=== PATIENT | female | born 1980 | race Caucasian/White ===

== ENCOUNTER 2018-09-14 13:34 | Observation (INO) | payer MEDICAID ==
[~2018-09-14] VITALS: Ht 157.5 cm; Wt 77.1 kg
[2018-09-14] MEDS ORDERED: PREN-380 PO (13:54)
[2018-09-14 13:55] VITALS: BP 99/57
== END 2018-09-14 19:45 | disposition home or self-care (01) ==
LOC: MLD 13:34
PROVIDERS: ADMIT Obstetrics & Gynecology; ATTEND Obstetrics & Gynecology
DX: O62.9 Abnormality of forces of labor, unspecified (principal); Z3A.00 Weeks of gestation of pregnancy not specified
CPT/HCPCS: 59025; 76805; G0378; Q0092

== ENCOUNTER 2018-09-24 19:31 | Observation (INO) | payer MEDICAID ==
[~2018-09-24] VITALS: Ht 157.5 cm; Wt 77.1 kg
[~2018-09-24 19:31] MED LIST: PREN-380 PO
[2018-09-24 20:19] VITALS: BP 105/68
== END 2018-09-24 23:00 | disposition home or self-care (01) ==
LOC: MLD 19:31 → MFCC 20:11
PROVIDERS: ADMIT Obstetrics & Gynecology; ATTEND Obstetrics & Gynecology
DX: O26.893 Other specified pregnancy related conditions, third trimester (principal); R10.9 Unspecified abdominal pain; Z3A.39 39 weeks gestation of pregnancy
CPT/HCPCS: 76815; G0378; Q0092

== ENCOUNTER 2018-09-26 15:25 | Observation (INO) | payer MEDICAID ==
[~2018-09-26] VITALS: Ht 157.5 cm; Wt 77.1 kg
== END 2018-09-26 19:45 | disposition home or self-care (01) ==
LOC: MLD 15:25
PROVIDERS: ADMIT Obstetrics & Gynecology; ATTEND Obstetrics & Gynecology
DX: O26.893 Other specified pregnancy related conditions, third trimester (principal); R10.9 Unspecified abdominal pain; Z3A.38 38 weeks gestation of pregnancy
CPT/HCPCS: 76815; G0378; C1758; J7120

== ENCOUNTER 2018-09-28 18:47 | Inpatient (IN) | payer MEDICAID ==
[~2018-09-28] VITALS: Ht 157.5 cm; Wt 78.9 kg
[2018-09-28] MEDS ORDERED: OXYTOCIN 10 UNITS/ML VIAL IM SCH (19:10)
[2018-09-28] MEDS ORDERED: METHYLERGONOVINE 0.2 MG/ML AMP IM PRN (19:10)
[2018-09-28] MEDS ORDERED: PROMETHAZINE 25 MG/ML VIAL IVP PRN (19:10)
[2018-09-28] MEDS ORDERED: CARBOPROST 250 MCG/ML AMP IM PRN (19:10)
[2018-09-28] MEDS ORDERED: NALBUPHINE 10 MG/ML AMP IVP PRN (19:10)
[2018-09-28 19:42] LABS: BASOPHILS % (AUTO) 0.7 % (0.0-2.0); EOSINOPHILS # (AUTO) 0.2 K/uL (0-0.4); EOSINOPHILS % (AUTO) 2.9 % (0.0-4.0); HEMOGLOBIN 13.3 g/dL (12.0-16.0); LYMPHOCYTES # (AUTO) 1.5 K/uL (2.5-16.5); MEAN CORPUSCULAR HEMOGLOBIN 31 pg (27-31); MEAN CORPUSCULAR HGB CONC 33 g/dL (33-37); MEAN CORPUSCULAR VOLUME 92.1 fL (80-94); MONOCYTES # (AUTO) 0.4 K/uL (0.8-1.0); MONOCYTES % (AUTO) 5.9 % (1.7-9.3); NEUTROPHILS # (AUTO) 4.4 K/uL (1.8-7.7); NEUTROPHILS % (AUTO) 67.5 % (42.2-75.2); PLATELET COUNT (AUTO) 204 K/uL (140-450); RED BLOOD CELL COUNT(AUTO) 4.35 MIL/uL (4.20-5.40); RED CELL DISTRIBUTION WIDTH 14.6 % (11.6-13.7); WHITE BLOOD COUNT (AUTO) 6.5 K/uL (4.8-10.8)
[2018-09-28 19:42] LABS: APPEARANCE,URINE SL CLOUDY (CLEAR); BILIRUBIN,URINE NEGATIVE (NEGATIVE); BLOOD, URINE TRACE-I (NEGATIVE); COLOR,URINE YELLOW (YELLOW); LEUKOCYTE ESTERASE ,URINE 1+ (NEGATIVE); NITRITE, URINE NEGATIVE (NEGATIVE); UGLUCOSE NEGATIVE (NEGATIVE)
[2018-09-28 19:47] LABS: RBC,URINE 0-5 /HPF (0-5)
[2018-09-28] MEDS ORDERED: MISOPROSTOL 25 MCG TAB VG SCH (20:00)
[2018-09-28 20:05] VITALS: BP 105/84
[2018-09-29] MEDS ORDERED: OXYTOCIN 20 UNITS in LACTATED RINGERS 1,000 ML IV SCH ×2 (03:00→19:19)
[2018-09-29] MEDS ORDERED: OXYTOCIN 20 UNITS/LR PREMIX 1,000 ML IV ONE (03:13)
[2018-09-29] MEDS: LACTATED RINGERS 1,000 ML IV SCH ×3 (03:23→11:08)
[2018-09-29] MEDS ORDERED: BUPIVACAINE 0.125%/NS PREMIX 250 ML ONE (07:26)
[2018-09-29] MEDS ORDERED: OXYTOCIN 10 UNITS/ML VIAL ONE ×2 (10:01→17:50)
[2018-09-29] MEDS ORDERED: LIDOCAINE 1% 500 MG/50 ML VIAL ONE (10:01)
[2018-09-29] MEDS ORDERED: CARBOPROST 250 MCG/ML AMP IM ONE (18:04)
[2018-09-29] MEDS ORDERED: NALBUPHINE 10 MG/ML AMP IVP ONE (18:15)
[2018-09-29] MEDS ORDERED: NALBUPHINE 10 MG/ML AMP ONE (18:19)
[2018-09-29] MEDS ORDERED: BENZOCAINE/MENTHOL 20%-0.5% 60 GM CAN TP PRN (19:20)
[2018-09-29] MEDS ORDERED: MEASLES, MUMPS, AND RUBELLA 1 VIAL SQVAC PRN (19:20)
[2018-09-29] MEDS: IBUPROFEN 600 MG TAB PO PRN (22:15)
[2018-09-30] MEDS: ACETAMINOPHEN 325 MG TAB PO PRN ×2 (03:26→12:09)
--- NOTE | 2018-09-30 05:46 | NUR ---
PATIENT HAS BEEN SCREENED AND CATEGORIZED LOW NUTRITION RISK. PATIENT WILL BE SEEN WITHIN 7 DAYS OF ADMISSION. 10/05/17 CONCHIS AKHTAR MS, RDN
[2018-09-30] MEDS: DOCUSATE SODIUM 100 MG GELCAP PO PRN (07:44)
[2018-09-30] MEDS: IBUPROFEN 600 MG TAB PO PRN ×3 (07:44→20:04)
[2018-09-30 09:00] LABS: BASOPHILS % (AUTO) 0.3 % (0.0-2.0); EOSINOPHILS # (AUTO) 0.1 K/uL (0-0.4); EOSINOPHILS % (AUTO) 0.8 % (0.0-4.0); HEMATOCRIT 34.7 % (36-48); HEMOGLOBIN 11.6 g/dL (12.0-16.0); LYMPHOCYTES # (AUTO) 1.2 K/uL (2.5-16.5); LYMPHOCYTES % (AUTO) 10.3 % (20.5-51.1); MEAN CORPUSCULAR HEMOGLOBIN 31 pg (27-31); MEAN CORPUSCULAR HGB CONC 33 g/dL (33-37); MEAN CORPUSCULAR VOLUME 91.5 fL (80-94); MONOCYTES # (AUTO) 0.5 K/uL (0.8-1.0); MONOCYTES % (AUTO) 4.6 % (1.7-9.3); NEUTROPHILS # (AUTO) 9.8 K/uL (1.8-7.7); PLATELET COUNT (AUTO) 170 K/uL (140-450); RED CELL DISTRIBUTION WIDTH 14.7 % (11.6-13.7); WHITE BLOOD COUNT (AUTO) 11.7 K/uL (4.8-10.8)
[2018-10-01] MEDS: IBUPROFEN 600 MG TAB PO PRN ×3 (03:07→15:11)
[2018-10-01] MEDS: DOCUSATE SODIUM 100 MG GELCAP PO PRN (09:20)
[2018-10-01] MEDS ORDERED: FERR325E14 PO (13:30)
[2018-10-01] MEDS ORDERED: IBUP-1842 PO (14:18)
[2018-10-01] MEDS ORDERED: BISA5TAB79 PO (14:21)
== END 2018-10-01 17:22 | disposition home or self-care (01) | DRG 560 ==
LOC: MLD 18:47 → MFCC 09-30 00:39
PROVIDERS: ADMIT Obstetrics & Gynecology; ATTEND Obstetrics & Gynecology
PROC: 10D07Z6 Extraction of Products of Conception, Vacuum, Via Natural or Artificial Opening (ICD-10-PCS; principal; 2018-09-29)
PROC: 0KQM0ZZ Repair Perineum Muscle, Open Approach (ICD-10-PCS; 2018-09-29)
PROC: 3E033VJ Introduction of Other Hormone into Peripheral Vein, Percutaneous Approach (ICD-10-PCS; 2018-09-29)
PROC: 10907ZC Drainage of Amniotic Fluid, Therapeutic from Products of Conception, Via Natural or Artificial Opening (ICD-10-PCS; 2018-09-29)
PROC: 3E0R3BZ Introduction of Anesthetic Agent into Spinal Canal, Percutaneous Approach (ICD-10-PCS; 2018-09-29)
PROC: 00HU33Z Insertion of Infusion Device into Spinal Canal, Percutaneous Approach (ICD-10-PCS; 2018-09-29)
DX: O77.0 Labor and delivery complicated by meconium in amniotic fluid (principal); O36.63X0 Maternal care for excessive fetal growth, third trimester, not applicable or unspecified; O66.0 Obstructed labor due to shoulder dystocia; O70.1 Second degree perineal laceration during delivery; Z37.0 Single live birth; Z3A.40 40 weeks gestation of pregnancy
CPT/HCPCS: 36415; 51702; 76805; 81001; 85025; 86592; 86886; 86900; 86901; 87086; J2001; J2300; J2590; J3490; J7120; Q0092